=== PATIENT | male | born 1930 | race Caucasian/White ===

== ENCOUNTER 2018-07-10 14:24 | Inpatient (IN) | payer MEDICARE, OTHER ==
[~2018-07-10] VITALS: Ht 170.2 cm; Wt 52.6 kg
--- NOTE | 2018-07-10 14:27 | NUR ---
KVNG FROM HOME FOR WITNESSED SYNCOPAL EPISODE AT BS FOR INFO. PT AAOX2. DENIES HEAD INJURY/PAIN, DENIES CHEST PAIN. NO SOB. VSS. IV ACCESS SYSTEMS REQUIREMENTS PLANNER, FLUIDS GIVEN BY PARAMEDICS. NOTED FC WITH BLOODY URINE OUTPUT. REPORTS JUST GOT HOME FROM UROLOGIST APPOINTMENT- BLOODY FC IS EXPECTED. SAFETY AND COMFORT MEASURES PROVIDED. WILL MONITOR.
[2018-07-10] MEDS ORDERED: IV NS 0.9% 1,000 ML BAG IV ONE (14:30)
[2018-07-10] MEDS ORDERED: CYAN100096 PO (14:52)
[2018-07-10] MEDS ORDERED: MULT-1168 PO (14:52)
[2018-07-10] MEDS ORDERED: ASCO500T9 PO (14:52)
[2018-07-10] MEDS ORDERED: FINA1TAB11 PO (14:52)
[2018-07-10] MEDS ORDERED: DOCU-270 PO (14:52)
[2018-07-10] MEDS ORDERED: ACID1TAB12 PO (14:52)
[2018-07-10] MEDS ORDERED: GLUC1TAB PO (14:52)
[2018-07-10] MEDS ORDERED: ATOR40TA PO (14:52)
[2018-07-10] MEDS ORDERED: UBID100C13 PO (14:52)
[2018-07-10] MEDS ORDERED: DESV100T PO (14:52)
[2018-07-10] MEDS ORDERED: BICA50TA49 PO (14:52)
[2018-07-10] MEDS ORDERED: MODA200T22 PO (14:52)
[2018-07-10] MEDS ORDERED: CLOP75TA15 PO (14:52)
[2018-07-10] MEDS ORDERED: MODA100T14 PO (14:52)
[2018-07-10] MEDS ORDERED: LORA10TA68 PO (14:52)
[2018-07-10] MEDS ORDERED: BETH25TA PO (14:52)
[2018-07-10] MEDS ORDERED: MEMA10TA PO (14:52)
[2018-07-10] MEDS ORDERED: DONE10TA44 PO (14:52)
[2018-07-10 15:05] LABS: BASOPHILS % (AUTO) 0.1 % (0.0-2.0); HEMATOCRIT 23 % (39-51); HEMOGLOBIN 7.6 g/dL (13.5-17.5); LYMPHOCYTES # (AUTO) 0.7 /CMM (0.8-4.8); LYMPHOCYTES % (AUTO) 8.2 % (20.0-44.0); MEAN CORPUSCULAR HEMOGLOBIN 30 PG (26.0-33.0); MEAN CORPUSCULAR HGB CONC 33 g/dl (31.0-36.0); MEAN CORPUSCULAR VOLUME 90 fL (80-96); MONOCYTES # (AUTO) 0.5 /CMM (0.1-1.30); MONOCYTES % (AUTO) 5.9 % (2.0-12.0); NEUTROPHILS # (AUTO) 7.3 /CMM (1.8-8.9); NEUTROPHILS % (AUTO) 85.8 % (43.0-81.0); PLATELET COUNT (AUTO) 204 /CMM (150-450); RED BLOOD CELL COUNT(AUTO) 2.54 MIL/uL (4.5-6.0); WHITE BLOOD COUNT (AUTO) 8.5 K/uL (4.3-11.0)
[2018-07-10 15:17] LABS: CALCIUM, SERUM 7.5 mg/dL (8.5-10.1); CARBON DIOXIDE 27 mmol/L (21-32); CHLORIDE 107 mmol/L (98-107); CREATININE 1.1 mg/dL (0.6-1.3); GLUCOSE 176 mg/dL (74-106); INR 1.06 (0.85-1.15); POTASSIUM 3.9 mmol/L (3.5-5.1); SODIUM SERUM 139 mmol/L (136-145); UREA NITROGEN, BLOOD 22 mg/dL (7-18)
[2018-07-10 15:22] LABS: TROPONIN I < 0.017 ng/mL (0.00-0.056)
--- NOTE | 2018-07-10 15:39 | NUR ---
REPORT GIVEN TO ELIAZAR LUCAS FOR TELE [id number]
--- NOTE | 2018-07-10 15:51 | NUR ---
FC DRAINED WITH 100 ML BLOODY URINE OUTPUT.
--- NOTE | 2018-07-10 15:52 | NUR ---
AT TO DISCUSS POC WITH PT'S . VERBALIZES UNDERSTANDING FOR BLOOD TRANSFUSION. ALL QUESTIONS ANSWERED. SIGNED CONSENT.
[2018-07-10 16:30] VITALS: BP 150/75
[2018-07-10] MEDS ORDERED: MAGNESIUM HYDROXIDE 30 ML UDC PO PRN (17:00)
[2018-07-10] MEDS ORDERED: ACETAMINOPHEN 325 MG TABLET PO PRN (17:00)
[2018-07-10] MEDS ORDERED: GLUCOSAMINE HCL PO SCH (17:00)
[2018-07-10] MEDS ORDERED: BETHANECHOL CHLORIDE (25 MG) 25 MG TABLET PO SCH (17:00)
[2018-07-10] MEDS ORDERED: MAG HYDROX/AL HYDROX/SIMETH 30 ML UDC PO PRN (17:00)
[2018-07-10] MEDS ORDERED: ZOLPIDEM TARTRATE 5 MG TABLET PO PRN (17:00)
[2018-07-10] MEDS ORDERED: Z GUARD REMEDY 2 OZ OINT TP PRN (17:00)
[2018-07-10] MEDS ORDERED: ONDANSETRON HCL/PF 4 MG/2 ML VIAL IVP PRN (17:00)
[2018-07-10] MEDS ORDERED: HYDROCODONE/APAP 5/325MG 1 EACH TABLET PO PRN (17:00)
[2018-07-10] MEDS ORDERED: CHONDR SU A NA PO SCH (17:00)
[2018-07-10] MEDS ORDERED: [UNRECOGNIZED DRUG - OTHER] PO SCH (17:00)
--- NOTE | 2018-07-10 17:00 | NUR ---
MARKETING OFFICER - ADMISSION NOTES Patient received from ER for syncopal episode around 1620. Patient had syncopal episode at Dr. Dominguez (urologist) appointment. Patient came in with dumas cath: hematuria (urologist aware per and have an appt this coming friday). came with along with patient and will be staying to watch over . Patient is confused and forgetful; have a tendency to scream. On oxygen theraoy at 2-4 lpm via nasal cannula with no SOB/labored breathing noted. IV on right ac #22g; patent and intact with NS hanged. Body assessment done. Safety measures in place. Bed in lowest position with lock on and call light within reach. Will continue to monitor and assess patient.
[2018-07-10] MEDS: IV NS 0.9% 1,000 ML IV PRN (17:13)
[2018-07-10] MEDS: DONEPEZIL 5 MG TABLET PO SCH (17:21)
[2018-07-10] MEDS: ACIDOPHILUS/BULGARICUS 1 EACH TAB.CHEW PO SCH (17:22)
[2018-07-10] MEDS ORDERED: MORPHINE SULFATE INJ 4 MG/ML DISP.SYRIN IV PRN (17:30)
[2018-07-10] MEDS: DOCUSATE SODIUM 100 MG CAPSULE PO SCH (17:39)
--- NOTE | 2018-07-10 17:40 | NUR ---
CULTURE ROOM WORKER - NON ADMIN NOTES HOLD Colace - stated that patient had one episode of diarrhea earlier this morning in patient's doctor's appointment with Urologist.
[2018-07-10] MEDS: BETHANECHOL CHLORIDE (10 MG) 10 MG TABLET PO SCH (18:00)
[2018-07-10] MEDS ORDERED: ATORVASTATIN 40 MG TABLET PO SCH (18:00)
--- NOTE | 2018-07-10 18:19 | NUR ---
WATCH CRYSTAL GRINDER NOTES Dr. Fournier at bedside. Performed bladder irrigation. Urine is now clear/light red. Family at bedside
--- NOTE | 2018-07-10 18:26 | NUR ---
PAI GOW MANAGER - NON ADMIN NOTES Non admin. Dose adjusted by pharmacy per .
--- NOTE | 2018-07-10 19:40 | NUR ---
STEWARD/STEWARDESS WINE CLOSING NOTES Report given. Patient remained in bed, awake. Patient is confused and forgetful. at bedside. Not in any type distress. Christopher cath in place. Afebrile. IV on right AC #20g running NS @100ml/hr, tolerating well. No SOB/labored breathing noted. On oxygen therapy @2lpm via nasal cannula with no SOB/labored breathing noted. All needs anticipated and met. Bed in locked and lowest position with bed alarm on and call light within reach. Endorsed to oncoming shift nurse Addendum: 07/10/18 at 2006 by ESTHELA KENDRICK RN TELE: normal sinus rhythm; HR 81
--- NOTE | 2018-07-10 19:45 | NUR ---
RECREATIONAL PROGRAMS DIRECTOR NOTE RECEIVED PATIENT FROM DAY SHIFT, PATIENT IS ALERT AND CONFUSED, AT BEDSIDE, NO S/S OF RESPIRATORY DISTRESS OR FACIAL GRIMACE NOTED AT THIS TIME.HANDY PRESENT WITH HEMATURIA SINCE ER, MD AWARE. IV ON RIGHT AC IS PATENT AND INTACT, FLUID IS RUNNING. TELE MONITOR SR 98. SRX2, BED IN LOW POSITION, CALL LIGHT WITHIN REACH, WILL CONTINUE TO MONITOR PATIENT.
[2018-07-10 20:00] VITALS: BP 140/74
[2018-07-10] MEDS: PIPERACILLIN /TAZOBACTAM 3.375 G in IV D5W 50 ML IV SCH (20:00)
[2018-07-10] MEDS ORDERED: BRIM5DRO2 OP (20:17)
[2018-07-10] MEDS ORDERED: BRIN10DR RIGHTEYE (20:17)
--- NOTE | 2018-07-10 20:30 | NUR ---
CLAIMS SUPERVISOR NOTE PATIENT'S FAMILY BROUGHT PT'S HOME MEDS; AZOPT, COMBIGAN, PRISTIQX4 TABS. PAGED ONCALL VOCATIONAL GUIDANCE COUNSELOR SAMM AND GOT AN ORDER TO CONTINUE, AND SENT MEDS DOWN TO PHARMACY.
[2018-07-10] MEDS: AZOPT EACHEYE SCH (20:43)
[2018-07-10 21:50] VITALS: BP 140/74
--- NOTE | 2018-07-10 21:53 | NUR ---
BOWLING BALL PATCHER NOTE 1 PRBC TRANSFUSION STARTED. VS WNL. WILL CONTINUE TO MONITOR FOR REACTIONS.
[2018-07-10 22:08] VITALS: BP 118/69
[2018-07-10 22:37] VITALS: BP 108/61
[2018-07-11] VITALS: BP 96/59
[2018-07-11 00:35] VITALS: BP 110/52
[2018-07-11] MEDS ORDERED: LORA0.5T PO (00:37)
--- NOTE | 2018-07-11 00:45 | NUR ---
DIRECTOR OF MOBILE MARKETING NOTE COMPLETED 1 PRBC TRANSFUSION, NO REACTIONS PRESENT. VS WNL, RECORDED IN [employer].
[2018-07-11] MEDS ORDERED: LORAZEPAM 0.5 MG TABLET PO PRN ×2 (01:00→10:45)
--- NOTE | 2018-07-11 01:00 | NUR ---
PROCESS ARCHITECT NOTE PATIENT KEPT SCREAMING, TRIED TO GET OUT OF THE BED, PULLED THE IV LINE OUT, AND HE WAS BEING RESTLESS PER HIS . PER HIS , HE TAKES ATIVAN 0.5MG PO PRN FOR ANXIETY OR SLEEP. CONTACTED ONCALL SOLUTION DIRECTOR SAMM, AND GOT AN ORDER OF ATIVAN 0.5MG PO QHS PRN FOR INSOMNIA. ORDERS PUT IN AND WILL CARRY OUT.
[2018-07-11] MEDS: PIPERACILLIN /TAZOBACTAM 3.375 G in IV D5W 50 ML IV SCH ×4 (01:46→21:42)
--- NOTE | 2018-07-11 03:35 | NUR ---
WORKDAY DIRECTOR NOTE PATIENT KEPT SCREAMING AND TOUCHING HIS BOTTOM AREA. ASKED IF HE HAS PAIN, HE NODDED HIS HEAD. MORPHINE 1MG IVP GIVEN, WILL MONITOR EFFECTIVENESS.
[2018-07-11 04:00] VITALS: BP 141/94
--- NOTE | 2018-07-11 05:35 | NUR ---
SALESPERSON SEWING MACHINES NOTE PATIENT'S HANDY WAS NOT FLOWING WELL. IRRIGATED MULTIPLE TIMES, REMOVED LARGE AMOUNT OF BLOOD CLOTS, BUT STILL FLOWING WAS NOT GOOD, CHECKED BLADDER SCAN 189ML NOTED. CONTACTED ONCALL SENIOR MOBILE WEB DEVELOPER SAMM, EXPLAINED THE SITUATION, AND SHE STATED TO CONTINUE IRRIGATION OR INSERT 3-WAY CATHETER IF IT IS GOING TO HELP. PT HAS 16 FR HANDY AT THIS TIME, CONSIDERING HE HAS LONG HX OF HEMATURIA, OBSTRUCTION AND PROSTATE CA, REINSERTION OF STRAIGHT TIP CATH WAS NOT AN OPTION. ASKED SAMM TO COME TO SEE THE PT, AND INSERT COUDE TIP CATHETER IF IT'S NECESSARY, BUT SHE SOUNDED UPSET AND SAID 'I'M NOT IN THE HOSPITAL RIGHT NOW, IT IS NOT UROLOGICAL EMERGENCY SITUATION, ME SEEING THE PATIENT AT THIS TIME DOESN'T CHANGE THE SITUATION, IT SHOULD BE THE UROLOGIST.' SHE ALSO STATED SHE WILL RELAY THE INFORMATION TO DAY SHIFT DR OR SENIOR MOBILE WEB DEVELOPER WHO IS GOING TO COVER THIS PATIENT. RECHECKED THE PATIENT AFTER MORNING CARE, THERE WAS A FLOW OF BLOODY URINE IN HANDY TUBING AGAIN. PATIENT IS SLEEPING COMFORTABLY IN BED AT THIS TIME, WILL CONTINUE TO MONITOR.
--- NOTE | 2018-07-11 07:00 | NUR ---
FIELD COIL WINDER NOTE PATIENT IS SLEEPING IN BED COMFORTABLY, NO S/S OF RESPIRATORY DISTRESS AND NO FACIAL GRIMACE NOTED. IV ON LEFT AC IS PATENT AND INTACT, FLUID IS RUNNING. TELE SR 90. WILL ENDORSE TO DAY SHIFT NURSE FOR AARON.
[2018-07-11 08:00] VITALS: BP 113/81
[2018-07-11] MEDS ORDERED: FINASTERIDE (5 MG) 5 MG TABLET PO SCH (09:00)
[2018-07-11] MEDS ORDERED: ASCORBIC ACID 500 MG TABLET PO SCH (09:00)
[2018-07-11] MEDS ORDERED: LEVOFLOXACIN 500 MG /D5W 100ML 500 MG in PREMIX 1 EA IV SCH (09:30)
[2018-07-11 09:34] LABS: BASOPHILS % (AUTO) 0.4 % (0.0-2.0); HEMATOCRIT 25 % (39-51); HEMOGLOBIN 7.9 g/dL (13.5-17.5); LYMPHOCYTES # (AUTO) 1.4 /CMM (0.8-4.8); LYMPHOCYTES % (AUTO) 18.5 % (20.0-44.0); MEAN CORPUSCULAR HEMOGLOBIN 30 PG (26.0-33.0); MEAN CORPUSCULAR HGB CONC 32 g/dl (31.0-36.0); MEAN CORPUSCULAR VOLUME 93 fL (80-96); MONOCYTES # (AUTO) 0.7 /CMM (0.1-1.30); MONOCYTES % (AUTO) 9.1 % (2.0-12.0); NEUTROPHILS # (AUTO) 5.3 /CMM (1.8-8.9); PLATELET COUNT (AUTO) 208 /CMM (150-450); RDW COEFFICIENT OF VARIATION 13.7 (11.5-15.0); RED BLOOD CELL COUNT(AUTO) 2.66 MIL/uL (4.5-6.0); WHITE BLOOD COUNT (AUTO) 7.5 K/uL (4.3-11.0)
[2018-07-11] MEDS: ACIDOPHILUS/BULGARICUS 1 EACH TAB.CHEW PO SCH ×2 (09:38→17:10)
[2018-07-11] MEDS: CYANOCOBALAMIN 500 MCG TABLET PO SCH (09:38)
[2018-07-11] MEDS: MEMANTINE HCL 5 MG TABLET PO SCH ×2 (09:39→17:10)
[2018-07-11] MEDS: AZOPT EACHEYE SCH ×2 (09:39→21:47)
[2018-07-11] MEDS: LORATADINE 10 MG TABLET PO SCH (09:39)
[2018-07-11] MEDS: PANTOPRAZOLE 40 MG VIAL IV SCH (09:39)
[2018-07-11] MEDS: PRISTIQ 100 MG PO SCH (09:39)
[2018-07-11] MEDS: MODAFINIL 100 MG TABLET PO SCH ×2 (09:39→14:00)
[2018-07-11] MEDS: MULTIVIT, IRON, MIN NO. 8, FA 1 TAB PO SCH (09:39)
[2018-07-11 09:50] LABS: ALANINE AMINOTRANSFERASE 20 U/L (12-78); ALBUMIN 2.3 g/dL (3.4-5.0); ALKALINE PHOSPHATASE 58 U/L (46-116); ASPARTATE AMINOTRANSFERASE 18 U/L (15-37); BILIRUBIN,TOTAL 0.4 mg/dL (0.2-1.0); CALCIUM, SERUM 7.8 mg/dL (8.5-10.1); CARBON DIOXIDE 27 mmol/L (21-32); CHLORIDE 110 mmol/L (98-107); CREATININE 0.9 mg/dL (0.6-1.3); GLUCOSE 117 mg/dL (74-106); MAGNESIUM 1.7 mg/dL (1.8-2.4); PHOSPHORUS 3.2 mg/dL (2.5-4.9); POTASSIUM 3.4 mmol/L (3.5-5.1); SODIUM SERUM 143 mmol/L (136-145); TOTAL PROTEIN, SERUM 5.2 g/dL (6.4-8.2); UREA NITROGEN, BLOOD 15 mg/dL (7-18)
[2018-07-11 09:53] LABS: TROPONIN I < 0.017 ng/mL (0.00-0.056)
[2018-07-11] MEDS ORDERED: COMBIGAN EYE DROP EACHEYE SCH (10:00)
[2018-07-11] MEDS: BICALUTAMIDE 50 MG TABLET PO SCH (10:04)
[2018-07-11 10:06] LABS: CHOLESTEROL 93 mg/dL (<200); FERRITIN 18 ng/mL (8-388); FREE T4 (FREE THYROXINE) 0.73 ng/dL (0.76-1.46); HDL CHOLESTEROL 46 mg/dL (40-60); LDL 36 mg/dL (0-99); THYROID STIMULATING HORMONE 0.984 uIU/mL (0.358-3.74); TRIGLYCERIDES 74 mg/dL (30-150)
[2018-07-11 10:48] LABS: IRON, SERUM 179 ug/dl (50-175); TOTAL IRON BINDING CAPACITY 252 ug/dl (250-450)
[2018-07-11] MEDS: LEVOFLOXACIN 250 MG /D5W 50 ML 250 MG in PREMIX 1 EA IV SCH (12:23)
[2018-07-11] MEDS: BETHANECHOL CHLORIDE (10 MG) 10 MG TABLET PO SCH ×2 (12:41→17:11)
[2018-07-11] MEDS: IV NS 0.9% 1,000 ML IV PRN (12:55)
[2018-07-11 16:00] VITALS: BP 153/74
[2018-07-11] MEDS: DONEPEZIL 5 MG TABLET PO SCH (17:10)
[2018-07-11] MEDS: DOCUSATE SODIUM 100 MG CAPSULE PO SCH (17:10)
[2018-07-11] MEDS ORDERED: CLOPIDOGREL BISULFATE 75 MG TABLET PO SCH (18:00)
--- NOTE | 2018-07-11 19:00 | NUR ---
RN MS NOTES NOTED IV MEDICATION ZOSYN NOT IN MED ROOM.
--- NOTE | 2018-07-11 19:12 | NUR ---
Handoff to night nurse for further care. Flako Parker RN
[2018-07-11] MEDS ORDERED: POTASSIUM CHLORIDE 20 MEQ TAB.PRT.SR PO ONE (19:30)
--- NOTE | 2018-07-11 19:30 | NUR ---
RN MS OPENING NOTES RECEIVED PATIENT IN BED, AWAKE ALERT AND ORIENTED X1, NOTED WITH CONFUSION, NON VERBAL NOTED PATENT HAS EPISODE OF YELLING. RESPIRATIONS EVEN AND UNLABORED WITH EQUAL RISE AND FALL OF CHEST, CURRENT SPO2 RA AT 97%. ORIENTED TO STAFF AND CALL LIGHT, SAFETY PRECAUTIONS IN PLACE, LOW BED AND LOCKED, BED ALARM IN PLACE, BED SIDE RAILS UP X 3. HANDY CATHETER INTACT, NOTED DRAINING, IRRIGATED 60CC WITH STERILE TECHNIQUE NOTED DRAINING WELL. NOTED DARK RED URINE AT THIS TIME. PER REPORT PATIENT HAS HAD HEMATURIA SINCE ADMISSION, WILL CONTINUE TO MONITOR FOR ANY CHANGES. IV SITE TO RIGHT AC #20G INTACT AND PATENT, MAGNESIUM REPLACEMENT RUNNING ORDERED. ALL NEEDS ATTENDED AT THIS TIME, WILL CONTINUE TO MONITOR. AT BEDSIDE.
[2018-07-11] MEDS: Magnesium 1GM/D5W 100ML PREMIX 100 ML IV SCH ×2 (19:40→20:40)
[2018-07-11 20:00] VITALS: BP 151/66
[2018-07-11] MEDS ORDERED: PIPERACILLIN /TAZOBACTAM 3.375 G VIAL IV ONE (20:06)
--- NOTE | 2018-07-11 21:42 | NUR ---
RN MS NOTES ZOSYN GIVEN AT THIS TIME DUE TO MAGNESIUM REPLACEMENT GIVEN ORDERED.
[2018-07-11 22:35] LABS: BASOPHILS % (AUTO) 0.6 % (0.0-2.0); EOSINOPHILS % (AUTO) 3.2 % (0.0-6.0); HEMATOCRIT 25 % (39-51); HEMOGLOBIN 7.7 g/dL (13.5-17.5); LYMPHOCYTES # (AUTO) 1.6 /CMM (0.8-4.8); LYMPHOCYTES % (AUTO) 20.7 % (20.0-44.0); MEAN CORPUSCULAR HEMOGLOBIN 29 PG (26.0-33.0); MEAN CORPUSCULAR HGB CONC 31 g/dl (31.0-36.0); MEAN CORPUSCULAR VOLUME 93 fL (80-96); MONOCYTES # (AUTO) 0.8 /CMM (0.1-1.30); MONOCYTES % (AUTO) 10.3 % (2.0-12.0); NEUTROPHILS # (AUTO) 5.1 /CMM (1.8-8.9); NEUTROPHILS % (AUTO) 65.2 % (43.0-81.0); PLATELET COUNT (AUTO) 210 /CMM (150-450); RDW COEFFICIENT OF VARIATION 14.1 (11.5-15.0); RED BLOOD CELL COUNT(AUTO) 2.66 MIL/uL (4.5-6.0); WHITE BLOOD COUNT (AUTO) 7.8 K/uL (4.3-11.0)
--- NOTE | 2018-07-11 22:58 | NUR ---
RN MS NOTES HBG RESULTED 7.7 SAMM HAMMER AWARE NO NEW ORDERS AT THIS TIME.
[2018-07-12] MEDS ORDERED: PIPERACILLIN /TAZOBACTAM 3.375 G VIAL IV ONE (01:02)
[2018-07-12] MEDS: PIPERACILLIN /TAZOBACTAM 3.375 G in IV D5W 50 ML IV SCH ×3 (01:18→17:27)
[2018-07-12] MEDS: IV NS 0.9% 1,000 ML IV PRN ×2 (05:35→21:03)
--- NOTE | 2018-07-12 07:15 | NUR ---
rn ms closing notes patient in bed, awake and alert x1 with episodes of yelling, and confusion. respirations even and unlabored with equal rise and fall of chest, patient currently is on ra and has been wnl spo2 at ra at 97%, no apparent distress or pain or discomfort present, dumas anchor in place for proper alignment, intact and draining well irrigated with 60 cc noted with clots when draining, no episode of dumas being clogged throughout shift. new iv site to right upper arm #22g intact and patent, ,ivf running as ordered, patient pulled out previous iv site, with scant amount of blood noted, no active bleeding noted. safety precautions in place, low bed and locked, bed alarm in place, at bedside, no significant changes throughout shift, antibiotics infused as ordered, all needs attended patient left safe will endorse to next shift for continuity of care.
[2018-07-12 07:27] LABS: CARBON DIOXIDE 25 mmol/L (21-32); CHLORIDE 109 mmol/L (98-107); CREATININE 0.7 mg/dL (0.6-1.3); GLUCOSE 100 mg/dL (74-106); POTASSIUM 3.8 mmol/L (3.5-5.1); SODIUM SERUM 144 mmol/L (136-145); UREA NITROGEN, BLOOD 11 mg/dL (7-18)
[2018-07-12 07:32] LABS: BASOPHILS # (AUTO) 0.1 /CMM (0.0-0.2); BASOPHILS % (AUTO) 0.6 % (0.0-2.0); EOSINOPHILS % (AUTO) 3.9 % (0.0-6.0); HEMATOCRIT 27 % (39-51); HEMOGLOBIN 8.5 g/dL (13.5-17.5); LYMPHOCYTES # (AUTO) 1.5 /CMM (0.8-4.8); LYMPHOCYTES % (AUTO) 17.4 % (20.0-44.0); MEAN CORPUSCULAR HEMOGLOBIN 30 PG (26.0-33.0); MEAN CORPUSCULAR HGB CONC 32 g/dl (31.0-36.0); MEAN CORPUSCULAR VOLUME 93 fL (80-96); MONOCYTES # (AUTO) 0.8 /CMM (0.1-1.30); MONOCYTES % (AUTO) 9.5 % (2.0-12.0); NEUTROPHILS # (AUTO) 5.9 /CMM (1.8-8.9); NEUTROPHILS % (AUTO) 68.6 % (43.0-81.0); PLATELET COUNT (AUTO) 226 /CMM (150-450); RDW COEFFICIENT OF VARIATION 13.9 (11.5-15.0); RED BLOOD CELL COUNT(AUTO) 2.85 MIL/uL (4.5-6.0); WHITE BLOOD COUNT (AUTO) 8.6 K/uL (4.3-11.0)
--- NOTE | 2018-07-12 07:43 | NUR ---
RN OPENING NOTES RECEIVED PATIENT IN BED RESTING, A/OX1, CONFUSED, EPISODES OF SCREAMING NOTED. AT BEDSIDE. NO ACUTE DISTRESS, NO SOB. NO S/S OF PAIN OR DISCOMFORT. IV SITE INTACT AND PATENT. HANDY IN PLACE, HEMATURIA NOTED, WILL IRRIGATE NEEDED PER JACE. KEPT PATIENT SAFE AND COMFORTABLE. BED IN LOW/LOCKED POSITION, SIDERAILS UPX2, SEMIFOWLERS, CALL LIGHT IN REACH. WILL CONTINUE TO MONITOR ACCORDINGLY.
[2018-07-12 08:00] VITALS: BP 133/74
[2018-07-12] MEDS: PRISTIQ 100 MG PO SCH (08:46)
[2018-07-12] MEDS: BRIMONIDINE TARTRATE OPHT SOLN 5 ML BOTTLE EACHEYE SCH (08:46)
[2018-07-12] MEDS: BICALUTAMIDE 50 MG TABLET PO SCH (08:47)
[2018-07-12] MEDS: AZOPT EACHEYE SCH ×2 (08:50→21:03)
[2018-07-12] MEDS: MULTIVIT, IRON, MIN NO. 8, FA 1 TAB PO SCH (08:51)
[2018-07-12] MEDS: ACIDOPHILUS/BULGARICUS 1 EACH TAB.CHEW PO SCH ×2 (08:51→17:39)
[2018-07-12] MEDS: LORATADINE 10 MG TABLET PO SCH (08:51)
[2018-07-12] MEDS: TIMOLOL 0.5% SOLN OPHTH 5 ML BOTTLE EACHEYE SCH (08:51)
[2018-07-12] MEDS: PANTOPRAZOLE 40 MG VIAL IV SCH (08:52)
[2018-07-12] MEDS: CYANOCOBALAMIN 500 MCG TABLET PO SCH (08:52)
[2018-07-12] MEDS: MEMANTINE HCL 5 MG TABLET PO SCH ×2 (08:52→17:40)
[2018-07-12] MEDS ORDERED: COMBIGAN EYE DROP EACHEYE SCH (09:00)
[2018-07-12] MEDS: MODAFINIL 100 MG TABLET PO SCH ×2 (09:00→14:00)
[2018-07-12] MEDS: LOPERAMIDE HCL (2 MG CAP) 2 MG CAPSULE PO PRN ×2 (09:23→17:46)
--- NOTE | 2018-07-12 09:35 | NUR ---
RN NOTES REFUESED MEDICATION PROVIGIL, MEDS WAS OPENED, WASTED IT.
[2018-07-12] MEDS: BETHANECHOL CHLORIDE (10 MG) 10 MG TABLET PO SCH ×2 (12:09→17:40)
[2018-07-12] MEDS: LEVOFLOXACIN 250 MG /D5W 50 ML 250 MG in PREMIX 1 EA IV SCH (12:11)
[2018-07-12 16:00] VITALS: BP 110/59
[2018-07-12] MEDS: DONEPEZIL 5 MG TABLET PO SCH (17:40)
[2018-07-12] MEDS: DOCUSATE SODIUM 100 MG CAPSULE PO SCH (18:00)
--- NOTE | 2018-07-12 19:25 | NUR ---
RN CLOSING NOTES PATIENT IN STABLE CONDITION, RESTING IN BED, AT BEDSIDE. ALL NEEDS ATTENDED AND PROVIDED. ALL DUE MEDS GIVEN ORDERED. KEPT PATIENT SAFE AND COMFORTABLE. BED IN LOW/LOCKED POSITION, SIDERAILS UPX2, HOB ELEVATED, CALL LIGHT IN REACH. ENDORSED TO NIGHT RN FOR AARON.
--- NOTE | 2018-07-12 19:30 | NUR ---
rn ms notes received patient in bed awake alert and oriented x 1 with episode of yelling, respirations even and unlabored with equal rise and fall of chest, on 02 2 liters via nc spo2 wnl. no apparent distress, appears to be comfortable no pain. dumas catheter intact noted [place] color with small sediments. iv site to right fa #22 intact and patent, ivf running as ordered.safety precautions in place, all needs attended at this time bed alarm and call light inplace, will continue to monitor.
[2018-07-12 20:00] VITALS: BP 132/74
[2018-07-13] MEDS: PIPERACILLIN /TAZOBACTAM 3.375 G in IV D5W 50 ML IV SCH ×5 (00:51→23:52)
--- NOTE | 2018-07-13 07:05 | NUR ---
RN OPENING NOTES RECEIVED PATIENT IN BED RESTING, A/OX1, CONFUSED, EPISODES OF SCREAMING NOTED. AT BEDSIDE. NO ACUTE DISTRESS, NO SOB. NO S/S OF PAIN OR DISCOMFORT. IV SITE INTACT AND PATENT. HANDY IN PLACE, ALCIDES COLORED URINE WITH SEDIMENTS NOTED, WILL IRRIGATE NEEDED PER JCAE. KEPT PATIENT SAFE AND COMFORTABLE. BED IN LOW/LOCKED POSITION, SIDERAILS UPX2, SEMIFOWLERS, CALL LIGHT IN REACH. WILL CONTINUE TO MONITOR ACCORDINGLY.
--- NOTE | 2018-07-13 07:25 | NUR ---
rn ms closing notes patient in bed, awake and alert x1 with episodes of yelling, and confusion. respirations even and unlabored with equal rise and fall of chest, patient currently is on ra and has been wnl spo2 at ra at 97%, no apparent distress or pain or discomfort present, dumas anchor in place for proper alignment, intact and draining well irrigated with 60 cc noted with small sediments and urine appearing yellow when draining, no episode of dumas being clogged throughout shift. new iv site to right upper arm #22g intact and patent, ,ivf running as ordered, patient pulled out previous iv site, with scant amount of blood noted, no active bleeding noted. safety precautions in place, low bed and locked, bed alarm in place, at bedside, no significant changes throughout shift, antibiotics infused as ordered, all needs attended patient left safe will endorse to next shift for continuity of care.
[2018-07-13 08:00] VITALS: BP 127/75
[2018-07-13 08:00] LABS: CALCIUM, SERUM 7.8 mg/dL (8.5-10.1); CARBON DIOXIDE 27 mmol/L (21-32); CHLORIDE 109 mmol/L (98-107); CREATININE 0.8 mg/dL (0.6-1.3); GLUCOSE 111 mg/dL (74-106); POTASSIUM 3.7 mmol/L (3.5-5.1); SODIUM SERUM 142 mmol/L (136-145); UREA NITROGEN, BLOOD 13 mg/dL (7-18)
[2018-07-13 08:10] LABS: BASOPHILS % (AUTO) 0.4 % (0.0-2.0); EOSINOPHILS % (AUTO) 4.3 % (0.0-6.0); HEMATOCRIT 25 % (39-51); HEMOGLOBIN 8.1 g/dL (13.5-17.5); LYMPHOCYTES # (AUTO) 1.4 /CMM (0.8-4.8); LYMPHOCYTES % (AUTO) 17.7 % (20.0-44.0); MEAN CORPUSCULAR HEMOGLOBIN 30 PG (26.0-33.0); MEAN CORPUSCULAR HGB CONC 33 g/dl (31.0-36.0); MEAN CORPUSCULAR VOLUME 91 fL (80-96); MONOCYTES # (AUTO) 0.9 /CMM (0.1-1.30); MONOCYTES % (AUTO) 10.6 % (2.0-12.0); NEUTROPHILS # (AUTO) 5.5 /CMM (1.8-8.9); PLATELET COUNT (AUTO) 235 /CMM (150-450); RDW COEFFICIENT OF VARIATION 12.8 (11.5-15.0); RED BLOOD CELL COUNT(AUTO) 2.71 MIL/uL (4.5-6.0); WHITE BLOOD COUNT (AUTO) 8.1 K/uL (4.3-11.0)
[2018-07-13] MEDS: MEMANTINE HCL 5 MG TABLET PO SCH ×2 (08:17→17:53)
[2018-07-13] MEDS: MULTIVIT, IRON, MIN NO. 8, FA 1 TAB PO SCH (08:18)
[2018-07-13] MEDS: ACIDOPHILUS/BULGARICUS 1 EACH TAB.CHEW PO SCH ×2 (08:19→17:52)
[2018-07-13] MEDS: LORATADINE 10 MG TABLET PO SCH (08:19)
[2018-07-13] MEDS: CYANOCOBALAMIN 500 MCG TABLET PO SCH (08:19)
[2018-07-13] MEDS: PANTOPRAZOLE 40 MG VIAL IV SCH (08:19)
[2018-07-13] MEDS: BICALUTAMIDE 50 MG TABLET PO SCH (08:20)
[2018-07-13] MEDS: PRISTIQ 100 MG PO SCH (08:20)
[2018-07-13] MEDS: TIMOLOL 0.5% SOLN OPHTH 5 ML BOTTLE EACHEYE SCH (08:25)
[2018-07-13] MEDS: BRIMONIDINE TARTRATE OPHT SOLN 5 ML BOTTLE EACHEYE SCH (08:25)
[2018-07-13] MEDS: MODAFINIL 100 MG TABLET PO SCH ×2 (08:26→14:00)
[2018-07-13] MEDS: LOPERAMIDE HCL (2 MG CAP) 2 MG CAPSULE PO PRN ×4 (08:30→23:39)
[2018-07-13] MEDS: AZOPT EACHEYE SCH ×2 (08:36→20:38)
[2018-07-13] MEDS: BETHANECHOL CHLORIDE (10 MG) 10 MG TABLET PO SCH ×2 (11:42→17:53)
[2018-07-13] MEDS: LEVOFLOXACIN 250 MG /D5W 50 ML 250 MG in PREMIX 1 EA IV SCH (12:47)
[2018-07-13] MEDS ORDERED: GUAIFENESIN 300 MG/15 ML UDC PO PRN (13:30)
--- NOTE | 2018-07-13 14:54 | NUR ---
REFUSED MEDICATION PROVIGIL, EXPLAINED RISK AND BENEFITS X2 BUT STILL REFUSED. MEDICATION RETURNED TO OMNICELL.
[2018-07-13 16:00] VITALS: BP 120/56
[2018-07-13] MEDS: DONEPEZIL 5 MG TABLET PO SCH (17:53)
[2018-07-13] MEDS: DOCUSATE SODIUM 100 MG CAPSULE PO SCH (18:00)
--- NOTE | 2018-07-13 19:10 | NUR ---
RN CLOSING NOTES PATIENT IN STABLE CONDITION. AT BEDSIDE. ALL NEEDS ATTENDED AND PROVIDED. ALL DUE MEDS GIVEN ORDERED. KEPT PATIENT SAFE AND COMFORTABLE. BED IN LOW/LOCKED POSITION, SIDERAILS UPX2 CALL LIGHT IN REACH. ENDORSED TO NIGHT RN FOR AARON.
--- NOTE | 2018-07-13 19:51 | NUR ---
RN MS OPENING NOTES PATIENT IN BED AWAKE. ALERT AND ORIENTED X1. CONFUSED. AT BEDSIDE. BREATHING EVEN AND UNLABORED. NO SOB NOTED. ON ROOM AIR. NO S/S OF PAIN OR DISCOMFORT. NO FACIAL GRIMACING. IV ON RIGHT UPPER ARM #22 INTACT AND PATENT. HANDY CATH INTACT AND DRAINING - ALCIDES WITH BLOOD SEDIMENTS URINE. ALL OTHER NEEDS ATTENDED TO. CALL LIGHT WITHIN REACH. BED ON LOWEST LOCKED POSITION. WILL CONTINUE TO MONITOR.
[2018-07-13 20:00] VITALS: BP 99/55
--- NOTE | 2018-07-14 01:26 | NUR ---
RN MS NOTES PATIENT PULLED OUT IV. ATTEMPTED TO RE-INSERT A NEW ONE BUT WAS UNSUCCESSFUL. WILL RE-ATTEMPT AGAIN LATER ON.
--- NOTE | 2018-07-14 03:16 | NUR ---
RN MS NOTES HAND II BLOCKER NURSE INSERTED NEW IV ACCESS ON LEFT WRIST G#22 - PATENT. GOOD BLOOD RETURN. WILL CONTINUE TO MONITOR.
[2018-07-14 04:29] VITALS: BP 141/55
[2018-07-14] MEDS: PIPERACILLIN /TAZOBACTAM 3.375 G in IV D5W 50 ML IV SCH ×2 (06:56→13:43)
--- NOTE | 2018-07-14 07:03 | NUR ---
RN MS NOTES PATIENT PULLED OUT IV AGAIN. NEW IV INSERTED BY CHARGE NURSE ON LEFT AC G#22. INTACT AND PATENT - GOOD BLOOD RETURN. WILL CONTINUE TO MONITOR.
--- NOTE | 2018-07-14 07:04 | NUR ---
RN MS CLOSING NOTES PATIENT IN BED ASLEEP. EASILY AROUSABLE. ALERT AND ORIENTED X1. CONFUSED. WITH MULTIPLE EPISODES OF YELLING THROUGHOUT NIGHT - OTHERWISE NO ACUTE CHANGES. AT BEDSIDE. BREATHING EVEN AND UNLABORED. NO SOB NOTED. ON 2L O2 VIA NC. NO S/S OF PAIN OR DISCOMFORT. NO FACIAL GRIMACING. IV ON LEFT AC #22 INTACT AND PATENT. HANDY CATH INTACT AND DRAINING - ALCIDES WITH BLOOD SEDIMENTS URINE. ALL OTHER NEEDS ATTENDED TO. KEPT CLEAN DRY AND COMFORTABLE. CALL LIGHT WITHIN REACH. BED ON LOWEST LOCKED POSITION. WILL ENDORSE TO ONCOMING NURSE FOR CONTINUITY OF CARE.
[2018-07-14 08:00] VITALS: BP 120/58
[2018-07-14 08:07] LABS: CARBON DIOXIDE 29 mmol/L (21-32); CHLORIDE 107 mmol/L (98-107); CREATININE 0.8 mg/dL (0.6-1.3); GLUCOSE 105 mg/dL (74-106); POTASSIUM 3.7 mmol/L (3.5-5.1); SODIUM SERUM 141 mmol/L (136-145); UREA NITROGEN, BLOOD 12 mg/dL (7-18)
--- NOTE | 2018-07-14 08:15 | NUR ---
MS RN OPENING NOTES RECEIVED PT SITTING UPRIGHT IN BED. PT IS A/O X1, AFEBRILE. RESPIRATIONS ARE EVEN AND UNLABORED, NOT IN ANY ACUTE DISTRESS AT THIS TIME. NO FACIAL GRIMACING OR MOANING NOTED. IV SITE INTACT TO LAC, NO INFILTRATION NOTED. DRESSING KEPT CLEAN AND DRY. SAFETY MEASURES ARE IN PLACE. INSTRUCTED PT TO USE CALL LIGHT WHEN ASSISTANCE IS NEEDED, PT UNABLE TO PERFORM RETURN DEMONSTRATION. IS AT BEDSIDE. CALL LIGHT IS LEFT WITHIN REACH. WILL CONTINUE TO MONITOR THROUGHOUT SHIFT FOR CONTINUITY OF CARE
[2018-07-14] MEDS: TIMOLOL 0.5% SOLN OPHTH 5 ML BOTTLE EACHEYE SCH (09:00)
[2018-07-14 09:08] LABS: BASOPHILS % (AUTO) 0.7 % (0.0-2.0); EOSINOPHILS % (AUTO) 4.1 % (0.0-6.0); HEMATOCRIT 26 % (39-51); HEMOGLOBIN 8.7 g/dL (13.5-17.5); LYMPHOCYTES % (AUTO) 18.5 % (20.0-44.0); MEAN CORPUSCULAR HEMOGLOBIN 31 PG (26.0-33.0); MEAN CORPUSCULAR HGB CONC 34 g/dl (31.0-36.0); MEAN CORPUSCULAR VOLUME 91 fL (80-96); MONOCYTES % (AUTO) 12.1 % (2.0-12.0); NEUTROPHILS % (AUTO) 64.6 % (43.0-81.0); PLATELET COUNT (AUTO) 218 /CMM (150-450); RDW COEFFICIENT OF VARIATION 13.8 (11.5-15.0); RED BLOOD CELL COUNT(AUTO) 2.84 MIL/uL (4.5-6.0); WHITE BLOOD COUNT (AUTO) 7.9 K/uL (4.3-11.0)
[2018-07-14] MEDS: PANTOPRAZOLE 40 MG VIAL IV SCH (09:10)
[2018-07-14] MEDS: MULTIVIT, IRON, MIN NO. 8, FA 1 TAB PO SCH (09:10)
[2018-07-14] MEDS: LORATADINE 10 MG TABLET PO SCH (09:10)
[2018-07-14] MEDS: LOPERAMIDE HCL (2 MG CAP) 2 MG CAPSULE PO PRN ×2 (09:10→14:30)
[2018-07-14] MEDS: ACIDOPHILUS/BULGARICUS 1 EACH TAB.CHEW PO SCH (09:10)
[2018-07-14] MEDS: CYANOCOBALAMIN 500 MCG TABLET PO SCH (09:10)
[2018-07-14] MEDS: MODAFINIL 100 MG TABLET PO SCH ×2 (09:11→14:30)
[2018-07-14] MEDS: MEMANTINE HCL 5 MG TABLET PO SCH (09:11)
[2018-07-14] MEDS: PRISTIQ 100 MG PO SCH (09:20)
[2018-07-14] MEDS: BICALUTAMIDE 50 MG TABLET PO SCH (09:20)
[2018-07-14] MEDS: BRIMONIDINE TARTRATE OPHT SOLN 5 ML BOTTLE EACHEYE SCH (09:20)
[2018-07-14] MEDS: AZOPT EACHEYE SCH (09:21)
[2018-07-14] MEDS: BETHANECHOL CHLORIDE (10 MG) 10 MG TABLET PO SCH (12:20)
[2018-07-14] MEDS: LEVOFLOXACIN 250 MG /D5W 50 ML 250 MG in PREMIX 1 EA IV SCH (12:21)
--- NOTE | 2018-07-14 13:30 | NUR ---
MS RN NOTES REMOVED HANDY CATHETER PER MANI LARRY. PT TOLERATED WELL.
--- NOTE | 2018-07-14 16:20 | NUR ---
MS CHOCOLATIER NOTE PT DISCHARGED TO HOME WITH AND CAREGIVER IN STABLE CONDITION VIA PERSONAL VEHICLE. PT IS ALERT AND RESPONSIVE, AFEBRILE. RESPIRATIONS ARE EVEN AND UNLABORED, NOT IN ANY ACUTE DISTRESS NOTED. PT DENIES ANY PAIN AT THIS TIME, NO C/O SOB, N/V. HANDY CATHETER REMOVED AND PT ABLE TO VOID IN TOILET USING A HAT WITH 200ML OF CLEAR/YELLOW URINE. DENIES ANY BLADDER DISCOMFORT. IV ACCESS REMOVED, APPLIED PRESSURE AND TOLERATED WELL. ID BAND REMOVED. EXPLAINED DISCHARGED PAPERWORK TO AND PT WITH VERBAL AND WRITTEN UNDERSTANDING. ALL BELONGINGS TAKEN WITH PATIENT. ACCOMPANIED PT WITH 2 STAFF ASSIST TO VEHICLE. PT DISCHARGED IN STABLE CONDITION.
[2018-07-15] MEDS ORDERED: LEVOFLOXACIN (250MG) 250 MG TABLET PO SCH (09:00)
== END 2018-07-14 16:28 | disposition home health service (06) | DRG 73 ==
LOC: ER 14:26 → TELE 15:45 → MED 07-11 09:42
PROVIDERS: ADMIT Nurse Practitioner Acute Care; ATTEND Nurse Practitioner Acute Care
PROC: 30233N1 Transfusion of Nonautologous Red Blood Cells into Peripheral Vein, Percutaneous Approach (ICD-10-PCS; principal; 2018-07-10)
DX: G90.8 Other disorders of autonomic nervous system (principal); G93.41 Metabolic encephalopathy; N17.0 Acute kidney failure with tubular necrosis; N39.0 Urinary tract infection, site not specified; D62 Acute posthemorrhagic anemia; R31.9 Hematuria, unspecified; F03.90 Unspecified dementia, unspecified severity, without behavioral disturbance, psychotic disturbance, mood disturbance, and anxiety; E78.00 Pure hypercholesterolemia, unspecified; Z85.46 Personal history of malignant neoplasm of prostate; Z90.79 Acquired absence of other genital organ(s); E78.5 Hyperlipidemia, unspecified
CPT/HCPCS: 36415; 70450-TC; 71045-TC; 80048-TC; 80053-TC; 80061-TC; 82728-TC; 82746; 83051; 83540-TC; 83735-TC; 84100-TC; 84439-TC; 84443-TC; 84484-TC; 85025-TC; 85730-TC; 86850-TC; 86921-TC; 93307-TC; 93880-TC; 97112-TC; 97116-TC; 97530-TC; A4216; A4217; A4606; C9113; J1956; J2270; J2543; J3475; J7030; J7050; J7060; P9016-BL; Z7610